=== PATIENT | female | born 1970 | race Two or more races ===

== ENCOUNTER 2017-01-25 11:46 | Day surgery (SDC) | payer BC ==
[2017-01-25] MEDS ORDERED: IV LACTATED RINGERS SOLUTION 1,000 ML BAG IV ONE (11:47)
[2017-01-25] MEDS ORDERED: LIDOCAINE HCL 1% 20 ML VIAL MC ONE (11:47)
[2017-01-25] MEDS ORDERED: PROPOFOL 200 MG/20 ML BOTTLE IV ONE (11:47)
[2017-01-25 12:39] LABS: *BLOOD, URINE Trace-lysed (NEGATIVE); *CLARITY,URINE CLOUDY (CLEAR); *COLOR,URINE YELLOW (YELLOW); *KETONES,URINE NEGATIVE (NEGATIVE); *PROTEIN,URINE 1+ (NEGATIVE); *UROBILINOGEN,URINE 0.2 E.U./dl (NORMAL); BASOPHILS % (AUTO) 0.8 % (0.0-2.0); EOSINOPHILS # (AUTO) 0.1 K/uL (0.0-0.7); EOSINOPHILS % (AUTO) 2.7 % (0.0-7.0); HEMATOCRIT 40.2 % (37-47); HEMOGLOBIN 13.9 G/DL (12.0-16.0); LEUKOCYTE ESTERASE ,URINE TRACE (NEGATIVE); LYMPHOCYTES # (AUTO) 1.6 K/UL (0.8-4.8); LYMPHOCYTES % (AUTO) 33.7 % (20.5-51.5); MEAN CORPUSCULAR HEMOGLOBIN 29.9 UUG (27.0-31.0); MEAN CORPUSCULAR HGB CONC 34 g/dL (32.0-37.0); MEAN CORPUSCULAR VOLUME 86.8 FL (81.0-99.0); MONOCYTES # (AUTO) 0.4 K/UL (0.1-1.30); MONOCYTES % (AUTO) 7.8 % (0.0-11.0); NEUTROPHILS # (AUTO) 2.6 K/UL (1.8-8.9); NITRITE, URINE NEGATIVE (NEGATIVE); PH,URINE 5.5 (5.0-8.0); PLATELET COUNT (AUTO) 235 K/UL (150-450); RED BLOOD CELL COUNT(AUTO) 4.64 MIL/UL (4.2-5.4); UGLUCOSE NEGATIVE (NEGATIVE); WHITE BLOOD COUNT (AUTO) 4.7 K/UL (4.0-11.2)
[2017-01-25 12:45] LABS: CREATININE 0.7 mg/dL (0.6-1.3); POTASSIUM 3.5 mmol/L (3.5-5.1)
[2017-01-25 12:58] LABS: *URINE HCG, QUAL NEGATIVE (NEGATIVE)
[2017-01-25 12:58] LABS: *BILIRUBIN,URIN 1+ (NEGATIVE)
[2017-01-25 13:00] LABS: BACTERIA,URINE MODERATE /HPF (NONE SEEN); MUCUS,URINE MODERATE /LPF (0-FEW); SQUAMOUS EPITHELIAL CELL,UR MANY /HPF (NONE SEEN)
== END 2017-01-25 15:20 | disposition home or self-care (01) ==
LOC: DS 11:46
PROVIDERS: ATTEND Internal Medicine Gastroenterology
DX: K63.89 Other specified diseases of intestine (principal); K29.70 Gastritis, unspecified, without bleeding; K64.8 Other hemorrhoids; E78.5 Hyperlipidemia, unspecified
CPT/HCPCS: 36415; 84703; 85025; 85610; 85730; A4217; J3490; J7120

== ENCOUNTER 2022-04-29 17:12 | Emergency (ER) | payer BC ==
[~2022-04-29] VITALS: Ht 154.9 cm; Wt 77.1 kg
[2022-04-29] MEDS ORDERED: OXYC-128 PO (19:44)
[2022-04-29 20:23] VITALS: BP 112/45
--- NOTE | 2022-04-29 20:23 | NUR ---
Patient discharged to home in stable condition. Written and verbal after care instructions given. Patient verbalizes understanding of instructions. Stressed follow up or return to ER for worsening s/s.
== END 2022-04-29 20:24 | disposition home or self-care (01) ==
LOC: ER 17:12
DX: M54.6 Pain in thoracic spine (principal); E78.00 Pure hypercholesterolemia, unspecified
CPT/HCPCS: 72072; A4663

== ENCOUNTER 2023-07-05 07:10 | Day surgery (SDC) | payer BC ==
[~2023-07-05 07:10] MED LIST: OXYC-128 PO
[2023-07-05] MEDS ORDERED: PROPOFOL 200 MG/20 ML BOTTLE ONE (08:00)
[2023-07-05 10:20] VITALS: TEMP 97.4
== END 2023-07-05 10:25 | disposition home or self-care (01) ==
LOC: DS 07:10
PROVIDERS: ATTEND Internal Medicine Gastroenterology
DX: K59.00 Constipation, unspecified (principal); R10.13 Epigastric pain; K29.50 Unspecified chronic gastritis without bleeding; K64.8 Other hemorrhoids; K63.89 Other specified diseases of intestine; K31.89 Other diseases of stomach and duodenum; K21.00 Gastro-esophageal reflux disease with esophagitis, without bleeding; Z87.440 Personal history of urinary (tract) infections; Z79.899 Other long term (current) drug therapy; Z98.890 Other specified postprocedural states
CPT/HCPCS: A4663; J3490

== ENCOUNTER 2024-02-28 11:57 | Emergency (ER) | payer BC ==
[~2024-02-28] VITALS: Ht 157.5 cm; Wt 70.3 kg
[2024-02-28] MEDS ORDERED: methylPREDNISolone SOD SUCC 125 MG/2 ML VIAL ONE (12:38)
[2024-02-28] MEDS ORDERED: diphenhydrAMINE 50 MG/1 ML VIAL ONE (12:38)
[2024-02-28] MEDS ORDERED: FAMOTIDINE. 20 MG/2 ML VIAL IV ONE (12:39)
[2024-02-28] MEDS: diphenhydrAMINE 50 MG/1 ML VIAL IV ONE (12:41)
[2024-02-28] MEDS: FAMOTIDINE. 20 MG/2 ML VIAL IV ONE (12:42)
[2024-02-28] MEDS: methylPREDNISolone SOD SUCC 125 MG/2 ML VIAL IV ONE (12:42)
[2024-02-28] MEDS: IV NORMAL SALINE 1000 ML BAG IV ONE (12:42)
[2024-02-28] MEDS ORDERED: PRED20TA PO (13:15)
[2024-02-28] MEDS ORDERED: DIPH25CA83 PO (13:15)
[2024-02-28] MEDS ORDERED: FAMO-132 PO (13:15)
[2024-02-28 16:27] VITALS: BP 101/71; TEMP 97; O2SAT 99
== END 2024-02-28 16:28 | disposition home or self-care (01) ==
LOC: ER 11:57
DX: L50.9 Urticaria, unspecified (principal); T78.40XA Allergy, unspecified, initial encounter; Z79.52 Long term (current) use of systemic steroids; Z79.891 Long term (current) use of opiate analgesic; X58.XXXA Exposure to other specified factors, initial encounter
CPT/HCPCS: 99284; 96374; 96361; 96375; J1200; J3490; J2919; J7040; A4606; A4663

== ENCOUNTER 2025-03-28 22:19 | Emergency (ER) | payer BC ==
[~2025-03-28] VITALS: Ht 154.9 cm; Wt 71.7 kg
[2025-03-28 22:19] VITALS: BP 116/74
[~2025-03-28 22:19] MED LIST changes: +DIPH25CA83 PO; +FAMO-132 PO; +PRED20TA PO
[2025-03-28] MEDS ORDERED: ONDANSETRON ODT 4 MG TAB.RAPDIS ONE (22:49)
[2025-03-28] MEDS ORDERED: HYDROCODONE/APAP 10-325 MG TABLET ONE (22:49)
[2025-03-28] MEDS: ONDANSETRON ODT 4 MG TAB.RAPDIS SL ONE (22:53)
[2025-03-28] MEDS: HYDROCODONE/APAP 10-325 MG TABLET PO ONE (22:53)
[2025-03-28] MEDS ORDERED: ONDA4TAB11 PO (23:41)
[2025-03-28] MEDS ORDERED: HYDR-3980 PO (23:41)
[2025-03-28 23:47] VITALS: BP 116/74; O2SAT 96
== END 2025-03-28 23:47 | disposition home or self-care (01) ==
LOC: ER 22:23
DX: G44.209 Tension-type headache, unspecified, not intractable (principal); M54.2 Cervicalgia; Z79.52 Long term (current) use of systemic steroids; Z87.448 Personal history of other diseases of urinary system; Z87.42 Personal history of other diseases of the female genital tract
CPT/HCPCS: A4606; A4663; Q0162